=== PATIENT | female | born 1965 | race Hispanic/Latino ===

== ENCOUNTER 2020-12-20 08:17 | Emergency (ER) | payer OTHER ==
[~2020-12-20] VITALS: Ht 165.1 cm; Wt 86.2 kg
[2020-12-20] MEDS ORDERED: NAPROSYN500 MG PO (09:39)
== END 2020-12-20 10:03 | disposition home or self-care (01) ==
LOC: FSED 08:34
DX: S53.402A Unspecified sprain of left elbow, initial encounter (principal); V92.06XA Drowning and submersion due to fall off (nonpowered) inflatable craft, initial encounter; Y93.16 Activity, rowing, canoeing, kayaking, rafting and tubing; Y92.828 Other wilderness area as the place of occurrence of the external cause; E11.9 Type 2 diabetes mellitus without complications; G20 Parkinson's disease
CPT/HCPCS: 99283